=== PATIENT | male | born 2000 | race Caucasian/White ===

== ENCOUNTER 2019-03-11 22:38 | Observation (INO) ==
[2019-03-11] MEDS ORDERED: SODIUM CHLORIDE 0.9% 1000ML 1,000 ML IV SCH (23:00)
--- NOTE | 2019-03-11 23:05 | XRay Report ---
SINGLE VIEW CHEST CLINICAL HISTORY: Atypical chest pain. FINDINGS: 2 AP, portable, upright chest radiographs are obtained. No prior studies are available for comparison at the time of dictation. The cardiomediastinal silhouette is unremarkable. The lungs and pleural spaces are clear. No pneumothorax is seen. The bony thorax is grossly intact. IMPRESSION: No active disease in the chest. ACT 112: Negative or not required by law. Electronically signed by: Nakul Ojeda M.D. 03/11/2019 11:04 PM
[2019-03-11 23:23] LABS: Basophils # (auto) 0.02 K/uL (0-0.2); Basophils % (auto) 0.3 %; Eosinophils # (auto) 0.14 K/uL (0-0.5); Hematocrit (blood only) 44.9 % (42-52); Hemoglobin 15.4 g/dL (14.0-18.0); Immature Granulocytes # (auto) 0.01 K/uL (0.00-0.02); Immature Granulocytes % (auto) 0.1 %; Lymphocytes # (auto) 1.66 K/uL (1.2-3.4); Lymphocytes % (auto) 24.1 %; Mean Corpuscular Hemoglobin 27.1 pg (25-34); Mean Corpuscular Hgb Conc 34.3 g/dL (32-36); Mean Corpuscular Volume 78.9 fL (80-100); Mean Platelet Volume 11.5 fL (7.4-10.4); Monocytes # (auto) 0.67 K/uL (0.11-0.59); Monocytes % (auto) 9.7 %; Neutrophils % (auto) 63.8 %; Platelet Count 173 K/uL (130-400); RDW Coefficient of Variation 13.8 % (11.5-14.5); RDW Standard Deviation 39.5 fL (36.4-46.3); Red Blood Count 5.69 M/uL (4.7-6.1)
[2019-03-11 23:34] LABS: INR 1.1 (0.9-1.1); Partial Thromboplastin Ratio 0.9; Partial Thromboplastin Time 24.8 Seconds (21.0-31.0); Prothrombin Time 11.5 Seconds (9.0-12.0)
[2019-03-11 23:51] LABS: Alanine Aminotransferase 19 U/L (12-78); Albumin Globulin Ratio 1.1 (0.9-2); Albumin Level 4.2 gm/dl (3.4-5.0); Aspartate Aminotransferase 13 U/L (15-37); BUN Creatinine Ratio 11.4 (10-20); Bilirubin,Total 0.4 mg/dl (0.2-1); Blood Urea Nitrogen 14 mg/dl (7-18); Calcium 9.1 mg/dl (8.5-10.1); Carbon Dioxide 29 mmol/L (21-32); Chloride 105 mmol/L (98-107); Creatinine Clr Calc Pharmacy 114.8 ml/min; Est GFR (African American) 101.3; Est GFR (Non-African American) 87.4; Globulin 3.7 gm/dl (2.5-4.0); Glucose 95 mg/dl (70-99); Lipase 138 U/L (73-393); Magnesium 1.9 mg/dl (1.8-2.4); Potassium 3.4 mmol/L (3.5-5.1); Sodium 140 mmol/L (136-145); Total Protein 7.9 gm/dl (6.4-8.2)
[2019-03-12 00:01] LABS: Alkaline Phosphatase 90 U/L (45-117); Troponin I < 0.015 ng/ml (0-0.045)
--- NOTE | 2019-03-12 01:56 | History & Physical Report ---
Date of Service March 12, 2019 Assessment & Plan (1) Chest pain: - So far unremarkable workup, will continue to trend trops, Echocardiogram TTE in AM to evaluate for Hypertrophic cardiomyopathy - No first degree relatives with cardiac dz; exercises vigorously without issues - Will check lipids - Will get a testosterone level per patient's request. - ECG showing some minimal criteria for LVH but patient is physically fit and consider this normal - Would benefit from cardiac/PCP follow up for cardiac holter monitoring if having these flutters to try to capture rhythm during symptoms - most likely anxiety provoked but need to rule out serious cardiac etiologies - Normal TSH in ED - Received 1L NSS in ED - CXR unremarkable - Offered the patient outpatient vs. staying here for workup; he opted to stay here for workup. Code: Full DVT ppx: SCDs FENGI: NPO since echocardiogram in AM Dispo: Obs, med/surg tele, expect discharge home tomorrow (2) Near syncope: most likely ortho static from getting out of bed too quick cardiac workup as above if negative, outpatient follow up (3) Hypokalemia: 3.4 in ED KCl elixer 40meq PO ordered Trend in AM History of Present Illness Chief Complaint: Chest Pain Primary Care Provider: [facility] Mr. Oneal Caicedo is a healthy 19 y/o male who presented to [facility] ED via EMS for Chest Pain. He notes he was laying in his bed drinking water evening of 03/11 and had onset of left precordial chest pain that was characterized as "muscle spasm." He notes that he stood up from bed and became lightheaded with near syncope. He was concerned about cardiac etiology since this has never happened to him in the past. Pain did not radiate, he did not have nausea/vomiting, diaphoresis, shortness of breath. Chest pain resolved. He notes no prior cardiac history but notes feeling his heart flutter for the past several years without chest pain. He notes it would happen at random at rest that it would beat "slightly faster" without sensation of skipping beats. He notes he runs for the past couple of weeks and lifts weights. He notes he runs outside with his shirt off in the cold and wondered if that could cause etiology of symptoms. He ran track in high school as well and has never had chest pain or syncope with strenuous exertion. 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 He had a Chem II exam tonight, denies caffeine intake. States he never used alcohol and denies drug use, is a non- smoker. He never has been seen for this heart flutter in the past. He notes never having lipid panel before and was supposed to have this performed by his PCP along with a Testosterone levels and is requesting these during stay. He had relatively unremarkable labs here, normal TSH in ED, Potassium was 3.4. He has not been sick recently. He notes he hasn't slept well the past 2 weeks because he's been busy with school. He notes staying well hydrated today. He does not a history of vaso-vagal syncope with blood draws which runs in his fam ricardo. Family Hx: Mom and Dad without cardiac problems. He notes Maternal Uncle with a heart transplant in his 40s bc of cardiomyopathy but doesn't know cause of cardiomyopathy. 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 Beliefs That Will Affect Care: None Current Living Situation: Alone Feels Safe at Home: Yes Smoking Status: Never smoker Second Hand Exposure: No ; Hx Alcohol Use: No Hx Substance Use: No Review of Systems Review of Systems: All systems reviewed & are unremarkable except as noted in HPI & below Constitutional: no fever and no chills Eyes: no diplopia and no worsening vision Ear, Nose, Mouth, Throat: no nasal congestion and no sore throat Respiratory: no cough and no dyspnea Cardiovascular: + lightheadedness; no chest pain with activity, no dyspnea on exertion and no syncope Gastrointestinal: no abdominal pain, no vomiting and no diarrhea/loose stools Genitourinary: no dysuria and no difficulty urinating Musculoskeletal: no back pain and no neck pain Integumentary: no rash Neurologic: no falls, no numbness and no headache(s) Endocrine: no polydipsia, no polyphagia and no polyuria Physical Exam Constitutional: WD/WN, vitals as above cooperative and comfortable Eyes: PERRL, conjunctivae normal, anicteric sclerae ENMT: external ear and nose normal, oropharynx normal Neck: normal visual inspection and trachea midline Thyroid: no thyromegaly and no thyroid nodules Respiratory: normal respiratory effort, lungs clear to auscultation no respiratory distress Cardiovascular: RRR, no murmur, no edema Gastrointestinal (Abdomen): Percussion/Palpation: abdomen soft; abdomen nontender, no guarding and abdomen not rigid Musculoskeletal: Head/Neck/Chest: normocephalic and head atraumatic Skin: no rashes, warm and dry Neurologic: moves all extremities and awake Psychiatric: Orientation: alert and oriented x 3 Affect: + anxious affect Results & Data Vital Signs (Past 12 Hours) Vital Signs Temp Pulse Pulse Resp BP BP Pulse Ox 03/12/19 01:13 71 16 113/69 97 03/12/19 00:00 63 16 119/75 95 03/11/19 23:32 63 16 116/63 96 03/11/19 22:49 36.7 C 80 24 128/82 98 Code Status & VTE Plan Code Status Full Code VTE Prophylaxis Plan VTE Prophylaxis will be ordered: Yes Reason for no VTE drug order: Treatment not indicated Supervising Physician Co-Signing Physician Notes Attending addendum: I have physically seen this patient, have supervised the medical residents activities, and agree with the H&P unless as otherwise noted. Assessment and Plan: Chest pain/near syncope- The patient will be admitted to telemetry for serial cardiac enzymes, serial EKG's, cardiac rhythm monitoring and a 2-D echocardiogram with Dopplers. Patient reports family history which may be interpreted as sudden cardiac , and cardiomyopathy. Main concern would be that of hypertrophic cardiomyopathy. Patient does exercise a significant amount, and suspect his issues with near syncope and in hospital bradycardic episodes is likely associated with increased vagal tone from exercise. We will get cardiology opinion. Remainder of orders and notations as noted. Resident Activity Tracking Resident Involvement: Resident Care Provided Care Provided: Adult Hospital Medicine (1) Chest pain Chest pain type: unspecified Qualified Code(s): R07.9 - Chest pain, un specified
[2019-03-12] MEDS ORDERED: ATROPINE SULFATE 0.1 MG/ML 10ML SYR IV ONE (01:57)
--- NOTE | 2019-03-12 02:00 | Emergency Department Note ---
History of Present Illness General Chief complaint: Chest Pain Stated complaint: CHEST PAIN History of Present Illness This 19 yo presents to the ER complaining of chest pain and syncope Location: Mid chest Quality: Uncomfortable Severity: Moderate Duration: Tonight Timing: Started tonight after he got home from chemistry Context: Patient was concerned and came in Modifying factors: better with nothing; worse with nothing Patient states he had a brief episode of chest pain got lightheaded and nearly or briefly passed out. He has a family history of cardiomyopathy and heart disease. He has had no prior heart testing. Patient denies exertional chest pain, dyspnea, abdominal pain, fever, flulike illness. No trauma to the area. No prior heart testing. Home Medications Home Medications Medication Instructions Recorded Confirmed Type No Known Home Medications 03/11/19 03/11/19 History Allergies Allergy/AdvReac Type Severity Reaction Status Date / Time No Known Allergies Allergy Unverified 03/11/19 22:53 Past Med/Surg History Medical History (Updated 03/12/19 @ 01:57 by Leonela Upton PA-C) No acute medical problems Surgical History No pertinent past surgical history Social History Feels Safe at Home: Yes Smoking Status: Never smoker Review of Systems A total of 10 systems reviewed and were otherwise negative Physical Exam Vital Signs Vital Signs - 24 hr 03/11/19 22:49 03/11/19 23:18 03/11/19 23:32 Temperature 36.7 C Temperature Source Oral Pulse Rate - Lying 72 Pulse Rate - Sitting 90 Pulse Rate - Standing 82 Pulse Rate 80 Pulse Rate [Right Finger] 63 Pulse Rhythm [Right Finger] Respiratory Rate 24 16 Respiratory Effort / Characteristics Non-Labored Spontaneous Non-Labored Spontaneous Respiratory Depth Normal Normal Respiratory Pattern Regular Regular Blood Pressure - Lying 127/70 Blood Pressure - Sitting 132/80 Blood Pressure- Standing 116/74 Blood Pressure 128/82 Blood Pressure [Left Arm] 116/63 Blood Pressure Mean 97 Blood Pressure Mean [Left Arm] 80 Blood Pressure Position Lying Pulse Oximetry 98 96 Oxygen Delivery Method Room Air Room Air Sepsis Recent Fever Within 48 Hours No Sepsis Action Taken by Nursing No Action Required 03/12/19 00:00 03/12/19 01:13 Temperature Temperature Source Pulse Rate - Lying Pulse Rate - Sitting Pulse Rate - Standing Pulse Rate Pulse Rate [Right Finger] 63 71 Pulse Rhythm [Right Finger] Regular Regular Respiratory Rate 16 16 Respiratory Effort / Characteristics Non-Labored Spontaneous Non-Labored Spontaneous Respiratory Depth Normal Normal Respiratory Pattern Regular Blood Pressure - Lying Blood Pressure - Sitting Blood Pressure- Standing Blood Pressure Blood Pressure [Left Arm] 119/75 113/69 Blood Pressure Mean Blood Pressure Mean [Left Arm] 89 83 Blood Pressure Position Pulse Oximetry 95 97 Oxygen Delivery Method Room Air Room Air Sepsis Recent Fever Within 48 Hours Sepsis Action Taken by Nursing VITALS: Vitals are noted on the nurse's note and reviewed by myself. Vital signs stable. GENERAL: Pleasant male anxious appearing, in no acute distress, nondiaphoretic, well-developed well-nourished. SKIN: Capillary reflex less than 2 seconds. HEENT: Normocephalic. PERRLA. EOMI. Nares patent. Mucous membranes moist. Neck is supple without nuchal rigidity. HEART: Regular rate and rhythm without murmurs gallops or rubs. LUNGS: Clear to auscultation bilaterally without wheezes, rales or rhonchi. No retractions or accessory muscle use. ABDOMEN: Positive bowel sounds x 4. Normal tympanic percussion. Soft, nontender, without masses or organomegaly. Serrano sign negative. No guarding or rebound tenderness. MUSCULOSKELETAL: No gross musculoskeletal defects. NEURO: Patient was alert and oriented to person place and time. No focal neurological deficits. Course Administered Medications Discontinued Medications Sodium Chloride (Nss 1000ml) 1,000 mls @ 999 mls/hr IV .Q1H1M [facility] Stop: 03/12/19 00:00 Last Infusion: 03/12/19 00:26 Dose: 0 mls/hr Documented by: [id number] Admin: 03/11/19 23:17 Dose: 999 mls/hr Documented by: [id number] Medical Decision Making Medical Records Attestation: I reviewed the patient's medical records. Home Medications Current Medication List: was personally reviewed by me Laboratory Data Attestation: I reviewed the patient's lab results. Result diagrams: 03/11/19 23:01 03/11/19 23:01 Lab Results 03/11/19 03/11/19 03/11/19 Range/Units 23:01 23:01 23:01 WBC 6.90 (4.8-10.8) K/uL RBC 5.69 (4.7-6.1) M/uL Hgb 15.4 (14.0-18.0) g/dL Hct 44.9 (42-52) % MCV 78.9 L (80-100) fL MCH 27.1 (25-34) pg MCHC 34.3 (32-36) g/dL RDW Std Deviation 39.5 (36.4-46.3) fL RDW Coeff of Jeffrey 13.8 (11.5-14.5) % Plt Count 173 (130-400) K/uL MPV 11.5 H (7.4-10.4) fL Immature Gran % (Auto) 0.1 % Neut % (Auto) 63.8 % Lymph % (Auto) 24.1 % [place] % (Auto) 9.7 % Eos % (Auto) 2.0 % Baso % (Auto) 0.3 % Immature Gran # (Auto) 0.01 (0.00-0.02) K/uL Neut # (Auto) 4.40 (1.4-6.5) K/uL Lymph # (Auto) 1.66 (1.2-3.4) K/uL [place] # (Auto) 0.67 H (0.11-0.59) K/uL Eos # (Auto) 0.14 (0-0.5) K/uL Baso # (Auto) 0.02 (0-0.2) K/uL PT 11.5 (9.0-12.0) Seconds INR 1.1 (0.9-1.1) APTT 24.8 (21.0-31.0) Seconds PTT Ratio 0.9 Sodium 140 (136-145) mmol/L Potassium 3.4 L (3.5-5.1) mmol/L Chloride 105 (98-107) mmol/L Carbon Dioxide 29 (21-32) mmol/L Anion Gap 6.0 (3-11) BUN 14 (7-18) mg/dl Creatinine 1.19 (0.6-1.4) mg/dl Est Cr Clr Drug Dosing 114.8 ml/min Est GFR ( Amer) 101.3 Est GFR (Non-Af Amer) 87.4 BUN/Creatinine Ratio 11.4 (10-20) Glucose 95 (70-99) mg/dl Calcium 9.1 (8.5-10.1) mg/dl Magnesium 1.9 (1.8-2.4) mg/dl Total Bilirubin 0.4 (0.2-1) mg/dl AST 13 L (15-37) U/L ALT 19 (12-78) U/L Alkaline Phosphatase 90 (45-117) U/L Troponin I < 0.015 (0-0.045) ng/ml Total Protein 7.9 (6.4-8.2) gm/dl Albumin 4.2 (3.4-5.0) gm/dl Globulin 3.7 (2.5-4.0) gm/dl Albumin/Globulin Ratio 1.1 (0.9-2) Lipase 138 (73-393) U/L TSH 1.020 (0.300-4.500) uIu/ml Imaging Data Attestation: I personally reviewed and interpreted this imaging study as follows: MDM Narrative Prior records/ancillary studies reviewed. Triage Nursing notes reviewed. The patient's history was concerning for chest pain and syncope. Differential diagnosis: Etiologies such as cardiac ischemia, aortic dissection, pulmonary embolism, pneumonia, pneumothorax, musculoskeletal, infections, pericarditis, myocarditis, esophageal rupture, gastrointestinal, as well as others were entertained. Physical examination: As above. ER treatment provided: An order was placed for continuous cardiac monitoring. The monitor shows a rate of 60-100 with a normal sinus rhythm. IV fluids On reassessment the patient felt better. Diagnostic interpretation by me: The electrocardiogram normal sinus, left ventricular hypertrophy, no acute ST-T wave changes. No old EKG. Impression normal sinus rhythm left ventricular hypertrophy interpreted by myself EKG ordered for chest pain I think arrhythmia is unlikely. EKG shows normal sinus rhythm with no interval abnormalities such as QT prolongation or WPW. There are no findings to suggest Brugada syndrome. Cardiac monitoring in the emergency department reveals no tachycardic or bradycardic dysrhythmia. The QRS voltage is not extremely large and there are no suggestive Q waves. The labs revealed negative troponin Imaging studies: Chest x-ray with no acute consolidation, pneumothorax or free air per my interpretation HEART SCORE: Hx: high/mod/low suspicion: 0 ECG: ST depression/nonspecific changes/normal: 0 Age: Greater than 65/45-64/less than 45: 0 Risk factors: (Hypertension, hyperlipidemia, diabetes, coronary disease, tobacco use, cocaine use): 0 Troponin: Greater than 2 times normal limits/1-2 times normal limits/normal: 0 Total: 0 Consultation: A consultation was placed with the hospitalist, Dr. Parry. The case was discussed and diagnostics were reviewed. The patient was evaluated in the ER for further treatment. Exam and history seem consistent with chest pain and syncope with abnormal EKG. There is a family history of cardiomyopathy. Patient is not been evaluated for this before. Medicine was consulted. Patient will be evaluated by hospitalist for possible admission. Heart score is low. I do not believe the patient is having a coronary event. By the evaluation outlined above emergent etiologies such as cardiac ischemia, aortic dissection, pulmonary embolism, pneumonia, pneumothorax, infections, pericarditis, myocarditis, gastrointestinal, as well as others were deemed relatively unlikely. The pt informed about the findings as listed above. All questions were answered and pleased with the treatment. Case reviewed with my attending The chart was completed utilizing [employer] Speech voice recognition software. Grammatical errors, random word insertions, pronoun errors, and incomplete sentences are an occassional consequence of this system due to software limitations, ambient noise, and hardware issues. Any formal questions or concerns about the content, text, or information contained within the body of this dictation should be directly addressed to the physician physiotherapist's assistant for clarification. Impression & Plan Chest pain, Syncope, Abnormal ECG Discharge Plan Visit Data Chief Complaint: Chest Pain Stated Complaint: CHEST PAIN ED Provider: Bernardo Juan ED Midlevel Provider: Leonela Upton Discharge Problem: Chest pain, Syncope, Abnormal ECG Patient Disposition: Being Evaluated by Hospitalist Condition: Good Forms Stand Alone Forms: [employer] Prescriptions Prescriptions: No Action No Known Home Medications RF: 0 Referrals Referrals: [place] [Primary Care Provider] - Discharge Problem: Chest pain Qualifiers: Chest pain type: unspecified Qualified Code(s): R07.9 - Chest pain, unspecified
[2019-03-12] MEDS ORDERED: POTASSIUM CHLORIDE 20 MEQ/15 ML UDC PO STA (02:48)
[2019-03-12] MEDS ORDERED: ACETAMINOPHEN 325 MG TAB PO PRN (02:48)
[2019-03-12] MEDS ORDERED: ALUMINUM/MAGNESIUM SUSP 30 ML UDC PO PRN (02:48)
[2019-03-12] MEDS ORDERED: MAGNESIUM HYDROXIDE SUSP 30 ML UDC PO PRN (02:48)
[2019-03-12] MEDS ORDERED: ONDANSETRON INJ 2 MG/ML 2 ML VIAL IV PRN (02:48)
[2019-03-12] MEDS ORDERED: MAGNESIUM SULFATE / D5W 1 GM/100 ML BAG IV ONE (04:45)
[2019-03-12] MEDS: NSS + 20MEQ KCL 20 MEQ/1,000 ML BAG IV SCH ×2 (04:54→13:04)
[2019-03-12 05:35] LABS: Chol HDL Ratio 3; Cholesterol 144 mg/dl (0-200); HDL Cholesterol 56 mg/dl; LDL Cholesterol Calculated 78 mg/dl; Triglycerides 52 mg/dl (0-150); Troponin I < 0.015 ng/ml (0-0.045); VLDL Cholesterol 10 mg/dl
--- NOTE | 2019-03-12 12:25 | XCELERA ---
[id number] [id number]
--- NOTE | 2019-03-12 14:16 | Electrocardiogram Report ---
Test Reason : Blood Pressure : / mmHG Vent. Rate : 080 BPM Atrial Rate : 080 BPM P-R Int : 134 ms QRS Dur : 100 ms QT Int : 368 ms P-R-T Axes : 006 057 044 degrees QTc Int : 424 ms Sinus rhythm with marked sinus arrhythmia Minimal voltage criteria for LVH, may be normal variant Poor R wave progression, consider anterior NH vs. lead placement vs. LVH Abnormal ECG No previous ECGs available Confirmed by Jean Sawyer ([id number]) on 03/12/2019 2:16:22 PM Referred By: REFERRED SELF Confirmed By:Jean Sawyer
--- NOTE | 2019-03-12 14:42 | Discharge Summary ---
Date of Service March 12, 2019 Admission HPI Per Admitting Provider Mr. Oneal Caicedo is a healthy 19 y/o male who presented to [facility] ED via EMS for Chest Pain. He notes he was laying in his bed drinking water evening of 03/11 and had onset of left precordial chest pain that was characterized as "muscle spasm." He notes that he stood up from bed and became lightheaded with near syncope. He was concerned about cardiac etiology since this has never happened to him in the past. Pain did not radiate, he did not have nausea/vomiting, diaphoresis, shortness of breath. Chest pain resolved. He notes no prior cardiac history but notes feeling his heart flutter for the past several years without chest pain. He notes it would happen at random at rest that it would beat "slightly faster" without sensation of skipping beats. He notes he runs for the past couple of weeks and lifts weights. He notes he runs outside with his shirt off in the cold and wondered if that could cause etiology of symptoms. He ran track in high school as well and has never had chest pain or syncope w ith strenuous exertion. 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 He had a Chem II exam tonight, denies caffeine intake. States he never used alcohol and denies drug use, is a non- smoker. He never has been seen for this heart flutter in the past. He notes never having lipid panel before and was supposed to have this performed by his PCP along with a Testosterone levels and is requesting these during stay. He had relatively unremarkable labs here, normal TSH in ED, Potassium was 3.4. He has not been sick recently. He notes he hasn't slept well the past 2 weeks because he's been busy with school. He notes staying well hydrated today. He does not a history of vaso-vagal syncope with blood draws which runs in his family. Family Hx: Mom and Dad without cardiac problems. He notes Maternal Uncle with a heart transplant in his 40s bc of cardiomyopathy but doesn't know cause of cardiomyopathy. Principal Diagnosis Presyncope Discharge Exam Constitutional WD/WN, vitals as above Eyes PERRL, conjunctivae normal, anicteric sclerae ENMT external ear and nose normal, oropharynx normal Neck trachea midline, no thyromegaly Respiratory normal respiratory effort, lungs clear to auscultation Cardiovascular RRR, no murmur, no edema Gastrointestinal (Abdomen) normal bowel sounds, soft, nontender, no hepatosplenomegaly Musculoskeletal no cyanosis or clubbing, extremities motor strength 5/5 Skin no rashes, warm and dry Neurologic patellar DTR's 2+ bilat, sensation intact and PERRL, EOMI, accommodation nl, no face palsy, no dysarthria Psychiatric A+Ox3, euthymic affect Lymphatic no cervical or axillary lymphadenopathy Discharge Data Allergies Allergy/AdvReac Type Severity Reaction Status Date / Time No Known Allergies Allergy Unverified 03/11/19 22:53 Consultations 03/12/19 00:02 ED Decision to Admit Stat Hospital Course (1) Chest pain: resolved, no chest pain in the hospital pain was not reproducible CXR normal, no ischemic changes on EKG, troponin negative x 2 sets, refused third due to vagal response on prior draws echocardiogram normal EF, no evidence of hypertrophic cardiomyopathy, normal valves patient ambulated a few laps around the RN station without any chest pain on monitor he is sinus bradycardia while resting, HR in the 40-50's when he sits up and walks around HR rises to normal rates in 70-90's, sinus rhythm lipid profile checked at his request, both LDL and HDL at goal normal TSH testosterone checked at his request, results still pending on discharge as this is send out lab will d/c patient to home, instructed to rest for next day, increase his activity level gradually after a week there would be no restrictions discussed that if he had palpitations in the future he could discuss with [facility] and get 30 day monitor (2) Near syncope: most likely ortho static from getting out of bed too quick, maybe vagal response from the chest pain cardiac workup negative patient was extremely sensitive to blood draws with vagal response, bradycardia, sweats clearly he has a sensitive vagal response so the presyncope would be easy to explain (3) Hypokalemia: 3.4 in ED resolved with PO replacement Total Time Total Time Spent Total Time Spent (In Minutes): 33 minutes Total Time Includes: Examination of the Patient, Discharge Planning, Medication Reconciliation and Communication With Other Providers (cardiology) Discharge Plan Discharge Items Patient Disposition: Home - Self-Care Reason For Visit: CHEST PAIN / NEAR SYNCOPE Discharge Diagnosis: Near syncope Condition on Discharge: Good Goals: maintain hydration/nutrition continue exercise program Activity: Resume your previous activity Non-emergency contact: Primary Care Provider Call non-emergency contact if: your symptoms worsen Follow-up/Referrals: [facility] [Primary Care Provider] - 03/17/19 1:20 pm Diet: Regular Addtl Attending Provider Instructions: Medications: no medications recommended Chest pain, pre-syncope no evidence of acute heart attack, normal EKG, negative troponin echocardiogram is normal, no evidence of hypertrophic changes, valves normal resting heart rate in the 40's when sleeping, goes up to 80-90's when awake this can be normal, especially for young athlete chest x-ray was also normal on admission recommend that you return to normal activities you can gradually increase exercise as tolerated, by next week you can exercise without limits stay well hydrated, well nourished Pending Studies at Discharge: Yes Studies:: Testosterone levels Follow up with [facility] for results Stand-Alone Forms: My [facility], Work/School Release (Inpt), Smoking Cessation Medications and DC Order Prescriptions: No Action No Known Home Medications RF: 0 Discharge Orders: Discharge Order (Routine); Ordered 03/12/19 Ordered By: Shukri Melgar Admission Data Admit Date/Time: 03/12/19 01:56 Attending Provider: Shukri Melgar Admit Provider: Maged Aden Primary Care Provider: [facility] Other Providers: Vincent Pond Other Interventions: Discharge Summary Assessment (RN) Last Done: 03/12/19 14:46 DC Date/Time DO NOT enter until pt leaves facility: 03/12/19 15:09 Coding Level of Care Code 84911 OBS Care - Discharge Diagnoses Chest pain R07.9 Chest pain type: unspecified Near syncope R55 Hypokalemia E87.6
--- NOTE | 2019-03-13 03:49 | Billing Data ---
Date of Service March 13, 2019 Coding Level of Care Code 20045 OBS Care - Level 3
[2019-03-15 22:35] LABS: Testosterone Free 81.5 pg/mL (35.0-155.0)
== END 2019-03-12 15:09 | disposition home or self-care (01) ==
LOC: ED 22:38 → 1E 22:38 → SUATTDRO 03-12 01:56 → 1E 03-12 02:23